=== PATIENT | male | born 1980 | race Caucasian/White ===

== ENCOUNTER 2016-07-28 08:58 | Day surgery (SDC) | payer OTHER ==
[2016-07-28] VITALS (12 sets, daily range): BP systolic 81–134; BP diastolic 60–78; PULSE 90–100; RESP 9–20; Ht 170.2 cm; Wt 105.0 kg
[~2016-07-28] VITALS: Ht 170.2 cm; Wt 105.0 kg
[~2016-07-28 08:58] MED LIST: BUPIVACAINE 0.25% (MPF) 30 ML INJ INJ ONE; CEFAZOLIN 1 GM/50 ML (PMX) 50 ML IVPB ONE
[2016-07-28] MEDS ORDERED: METF500T4 PO (09:42)
[2016-07-28] MEDS ORDERED: GLIP5TAB13 PO (09:43)
[2016-07-28] MEDS ORDERED: LOSA25TA5 PO (09:44)
[2016-07-28] MEDS ORDERED: SITA50TA2 PO (09:44)
[2016-07-28 10:12] LABS: ADD SCAN DIFF NO
[2016-07-28 10:20] LABS: BASOPHILS % 0.4 % (0.0-2.0); EOSINOPHILS # 0.1 10^3/ul (0.0-0.5); EOSINOPHILS % 1.7 % (0.0-7.0); HEMATOCRIT 44.2 % (42.0-52.0); HEMOGLOBIN 15.2 g/dl (14.0-18.0); LYMPHOCYTES # 2.1 10^3/ul (0.8-2.9); LYMPHOCYTES % 29.4 % (15.0-51.0); MEAN CORPUSCULAR HEMOGLOBIN 29.7 pg (29.0-33.0); MEAN CORPUSCULAR HGB CONC 34.4 g/dl (32.0-37.0); MEAN CORPUSCULAR VOLUME 86.3 fl (82.0-101.0); MEAN PLATELET VOLUME 10.2 fl (7.4-10.4); MONOCYTE # 0.5 10^3/ul (0.3-0.9); MONOCYTES % 7.5 % (0.0-11.0); NEUTROPHIL # 4.4 10^3/ul (1.6-7.5); NEUTROPHILS % 60.7 % (39.0-77.0); PLATELET COUNT 235 10^3/UL (140-415); RED BLOOD COUNT 5.12 10^6/ul (4.70-6.10); RED CELL DISTRIBUTION WIDTH 12.6 % (11.5-14.5); WHITE BLOOD COUNT 7.2 10^3/ul (4.8-10.8)
[2016-07-28] MEDS ORDERED: BUPIVACAINE 0.5% (SDV) 30 ML INJ ONE (10:26)
[2016-07-28] MEDS ORDERED: PROPOFOL 20 ML ONE (10:33)
[2016-07-28] MEDS ORDERED: METOCLOPRAMIDE 10 MG INJ ONE (10:33)
[2016-07-28] MEDS ORDERED: FENTAnyl 50 MCG/ML VIAL ONE (10:33)
[2016-07-28] MEDS ORDERED: ONDANSETRON 4 MG INJ ONE (10:33)
[2016-07-28] MEDS ORDERED: MIDAZOLAM 1 MG/ML 2 ML INJ ONE (10:33)
[2016-07-28 10:36] LABS: ALBUMIN 4.5 g/dl (3.3-4.9); ALBUMIN/GLOBULIN RATIO 1.87; BILIRUBIN,INDIRECT 0.2 mg/dl (0-1.1); BILIRUBIN,TOTAL 0.2 mg/dl (0.2-1.3); TOTAL PROTEIN 6.9 g/dl (6.1-8.1)
[2016-07-28 10:37] LABS: INR 0.88; PARTIAL THROMBOPLASTIN TIME 29.2 Sec (25.0-35.0); PROTIME 11.9 Sec (12.2-14.2); PT RATIO 0.9
[2016-07-28] MEDS ORDERED: CEFAZOLIN 1 GM INJ ONE (10:38)
[2016-07-28 10:40] LABS: CALCIUM 8.7 mg/dl (8.4-10.2); CREATININE 0.95 mg/dl (0.61-1.24); POTASSIUM 4.5 mmol/L (3.5-5.1)
--- NOTE | 2016-07-28 10:46 | HP ---
DATE OF ADMISSION: 07/28/2016 HISTORY OF PRESENT ILLNESS: Flakito is a 35-year-old male with significant phimosis and a history o f diabetes, who presents for an elective circumcision. The patient is unable to retract the foreski n and it is very painful. When he urinates there is obstruction secondary to the obstructing urethr a. He has tried medical therapy, including topical application. This has not resolved his issue, a nd thus he presents for elective circumcision. PAST MEDICAL HISTORY: Diabetes. PAST SURGICAL HISTORY: Repair of retinal detachment. FAMILY HISTORY: Noncontributory. SOCIAL HISTORY: Positive social alcohol. The patient does not smoke. ALLERGIES: NONE. MEDICATIONS: 1. Insulin. 2. Januvia. 3. Metformin. PHYSICAL EXAMINATION: LUNGS: Good breath sounds bilaterally. HEART: Regular rate and rhythm. ABDOMEN: Soft, nondistended, nontender. No palpable masses. BACK: No CVA tenderness. No masses. GENITALIA: Marked phimosis of the foreskin, with scar tissue on the distal aspect of the foreskin. Unable to retract the foreskin, unable to visualize the glans penis. Remaining shaft of penis with in normal limits. Normal scrotum, testicles and epididymis. IMPRESSION: Dense phimosis. PLAN: Circumcision. How the procedure is performed, potential complications, side effects long-ter m and short-term outcome were all reviewed, as well as pat and postoperative course, Potential comp lications including, pain, infection, injury to the glans penis, shaft of penis and surrounding stru ctures, inability to urinate, erectile dysfunction, change in sexual function and sensation on the p [place], difficulty in voiding, as well as anesthetic risks including, but not limited to, DVT, PE, MS, stroke, and were all discussed. Potential for staged intervention were additionally reviewed , as well as potential postoperative course and pain. He accepts the above risks and would like to proceed. All questions have been answered, as well as an ample amount of time to answer all questio ns. Dictated By: AMERICO YUEN/NTS Conf#: [id number] DID#: [id number]
[2016-07-28] MEDS ORDERED: BUPIVACAINE 0.5% (SDV) 30 ML INJ INJ ONE (10:54)
[2016-07-28] MEDS ORDERED: METOCLOPRAMIDE 10 MG INJ IV PRN (11:00)
[2016-07-28] MEDS ORDERED: OXYCODONE/ACETAMINOPHEN (5/325) TAB PO PRN ×2 (11:00)
[2016-07-28] MEDS ORDERED: ONDANSETRON 4 MG INJ IV PRN (11:00)
[2016-07-28] MEDS ORDERED: DIPHENHYDRAMINE 50 MG INJ IV PRN (11:00)
[2016-07-28] MEDS ORDERED: HYDROmorphONE (0.2 MG/ML) 10ML SYG IV PRN ×3 (11:00)
[2016-07-28] MEDS ORDERED: MEPERIDINE 25 MG INJ IV PRN (11:00)
--- NOTE | 2016-07-28 11:58 | PDOCDIS ---
Discharge Instructions CONDITION Patient Condition: Good HOME CARE INSTRUCTIONS: Diet Instructions: Regular ACTIVITY: Activity Restrictions: Slowly Increase Activity FOLLOW UP/APPOINTMENTS Appointments next week, call for time and date REFERRALS Other Referrals none OTHER ORDERS: Other Orders: dc to home when awake and stable. does not need to void before discharge SCHOOL/WORK RELEASE May return to School/Work on: Aug 15, 2016 AMERICO CHAVEZ Jul 28, 2016 11:58
--- NOTE | 2016-07-28 13:01 | OPR ---
DATE OF OPERATION: HISTORY: Flakito King is a 35-year-old diabetic with significant phimosis presenting for a circu mcision. How the procedure is performed, potential complications and side effects have all been dis cussed and previously dictated. PREOPERATIVE DIAGNOSIS: Phimosis. POSTOPERATIVE DIAGNOSIS: Phimosis. OPERATION PERFORMED: Circumcision and phalloplasty. SURGEON: Americo Conklin MD ANESTHESIA: General with local. FINDINGS: Dense significant Phimosis. COMPLICATIONS: None. DESCRIPTION OF PROCEDURE: Patient was brought into the operating room and placed on the operating t able in supine position and prepped and draped in the usual fashion. After anesthesia was induced, a timeout was undertaken. Pressure points were padded. He received preoperative antibiotics and se quential compression devices were applied. PHYSICAL EXAMINATION: Demonstrated marked dense and significant advanced disease for phimosis. The foreskin was unable to be retracted. He was prepped and draped in usual fashion. A penile block was performed with a total of 10 mL of 0 .5% Marcaine without epinephrine. Additionally, this was instilled at the base of the penis. A cir cumferential incision was created on the outer aspect of the foreskin. Of note, the physical examin ation did demonstrate dense phimosis. The foreskin was unable to be retracted. After this circumfe rential incision was created with a 15 blade scalpel, a dorsal slit was created on the dense scar ti ssue of the foreskin as the foreskin was unable to be retracted. The dense scar tissue was noted to track down to where the foreskin attaches onto the shaft of the penis. This allowed for retraction of the foreskin. With retraction of foreskin, the glans penis was identified and marked scar tissu e was noted at the frenulum, which needed to be sharply dissected off of the foreskin. Continued ph imotic tissue was additionally appreciated on the inner aspect of the foreskin. Subsequently, a circumferential incision was created on the inner aspect of the foreskin, which then allowed for removal of this markedly phimotic foreskin. Pinpoint hemostasis was obtained. The shaina nulum area and glans penis was reconstructed with interrupted 0 Vicryl sutures. The newly closed ed ges of the foreskin were reapproximated with interrupted 3-0 Vicryl sutures. Pinpoint hemostasis wa s obtained. Excellent cheondoism of the glans penis and shaft penis was appreciated. A Vaseline g auze was applied as well as a loosely applied gauze and Coban. He was transferred to recovery room in stable condition. Discharged to home on [place] 1 to 2 tabs p.o. q. 6 hour p.r.n., dispensed #40, no refill. He will follow up in the office in 2 weeks' time. The sponge and needle count were joaquim ect. There were no noted complications. Dictated By: AMERICO YUEN/NTS Conf#: [id number] DID#: [id number]
== END 2016-07-28 13:20 | disposition home or self-care (01) ==
LOC: SDS 08:58
PROVIDERS: ATTEND Urology
DX: N47.1 Phimosis (principal); I10 Essential (primary) hypertension; E11.9 Type 2 diabetes mellitus without complications
CPT/HCPCS: 54161; 80053; 82962; 85025; 85610; 85651; 85730; 88304; J0690; J2250; J2405; J2765; J3010; Z7512; Z7610